=== PATIENT | male | born 1965 | race American Indian/Alaskan Native ===

== ENCOUNTER 2017-08-21 05:05 | Emergency (ER) | payer OTHER ==
--- NOTE | 2017-08-21 09:23 | XRay Report ---
Chest 2 views: History: Cough for 2 months. Findings: Normal cardiomediastinal silhouette. Trachea is midline. No consolidation, pneumothorax or pleural effusion. Impression: No acute cardiopulmonary findings.
--- NOTE | 2017-08-21 09:49 | Emergency Department Report ---
ED General Adult HPI - General Chief complaint: Upper Respiratory Infection Stated complaint: COUGH Time Seen by Provider: 08/21/17 09:38 Source: patient Mode of arrival: Ambulatory Limitations: No Limitations - History of Present Illness Initial comments: PT c/o cough x 2 months. PT states he gets this every year. PT states he has completed 2 courses of antibiotics that were prescribed by his PCP. PT states after the second course, he stopped having nasal congestion/ drainage, sob, and sneezing. PT states he has a hx of allergies and he is taking Flonase and Myesha. PT states he has an albuterol inhaler and states he has not been wheezing. PT states his MD usually gives him a steroid shot when he gets like this, but he did not do that this year. MD Complaint: cough -: Gradual, month(s) (two) Location: chest Severity scale (0 -10): 0 Improves with: medication (2nd round of antibiotics helped some ) Associated Symptoms: denies other symptoms. denies: chest pain, loss of appetite, nausea/vomiting, shortness of breath, weakness Treatments Prior to Arrival: none - Related Data Previous Rx's Medication Instructions Recorded Last Taken Type Famotidine [Pepcid] 20 mg PO BID #40 tablet 07/26/15 Unknown Rx Loratadine [Claritin] 10 mg PO DAILY #30 tablet 07/26/15 Unknown Rx Prednisone [predniSONE 10 mg 10 mg PO .TAPER #1 tab.ds.pk 07/26/15 Unknown Rx (6-Day Pack, 21 Tabs)] hydrOXYzine HCL [Atarax] 25 mg PO Q6HR PRN #30 tablet 07/26/15 Unknown Rx Benzonatate [Tessalon Perles] 100 mg PO Q8HR PRN #12 capsule 08/21/17 Unknown Rx Carbamide Peroxide [Ear Wax 5 drops AU BID PRN #1 bottle 08/21/17 Unknown Rx Removal] Allergies Allergy/AdvReac Type Severity Reaction Status Date / Time Penicillins Allergy Unknown Verified 08/21/17 06:38 ED Review of Systems ROS: Stated complaint: COUGH Other details as noted in HPI Comment: All other systems reviewed and negative Constitutional: denies: fever, malaise ENT: denies: ear pain, throat pain, congestion Respiratory: cough, other (dry cough ). denies: shortness of breath, SOB with exertion, SOB at rest Cardiovascular: denies: chest pain Gastrointestinal: denies: abdominal pain, nausea, vomiting ED Past Medical Hx - Past Medical History Previous Medical History?: Yes Hx Asthma: Yes Additional medical history: SEASONAL ALLERGIES - Social History Smoking Status: Never Smoker - Medications Home Medications: Home Medications Medication Instructions Recorded Confirmed Last Taken Type Famotidine [Pepcid] 20 mg PO BID #40 tablet 07/26/15 Unknown Rx Loratadine [Claritin] 10 mg PO DAILY #30 tablet 07/26/15 Unknown Rx Prednisone [predniSONE 10 mg 10 mg PO .TAPER #1 tab.ds.pk 07/26/15 Unknown Rx (6-Day Pack, 21 Tabs)] hydrOXYzine HCL [Atarax] 25 mg PO Q6HR PRN #30 tablet 07/26/15 Unknown Rx Benzonatate [Tessalon Perles] 100 mg PO Q8HR PRN #12 capsule 08/21/17 Unknown Rx Carbamide Peroxide [Ear Wax 5 drops AU BID PRN #1 bottle 08/21/17 Unknown Rx Removal] ED Physical Exam - General Limitations: No Limitations General appearance: alert, in no apparent distress - Head Head exam: Present: atraumatic, normocephalic, normal inspection - Eye Eye exam: Present: normal appearance, PERRL, EOMI. Absent: conjunctival injection, nystagmus - ENT ENT exam: Present: mucous membranes moist, normal external ear exam, other ( clear post nasal drainage ) - Expanded ENT Exam Expanded TM/Canal exam: Cerumen Impaction: Right TM, Left TM Mouth exam: Absent: drooling, trismus Throat exam: Negative: tonsillar erythema, tonsillomegaly, tonsillar exudate - Neck Neck exam: Present: normal inspection, full ROM. Absent: tenderness, lymphadenopathy - Respiratory Respiratory exam: Present: wheezes. Absent: respiratory distress, rales, rhonchi, stridor - Expanded Respiratory Exam Expanded Location: Wheezes: Left, Upper (faint wheeze heard) - Cardiovascular Cardiovascular Exam: Present: regular rate, normal rhythm. Absent: normal heart sounds - GI/Abdominal GI/Abdominal exam: Present: soft. Absent: tenderness - Extremities Exam Extremities exam: Present: normal inspection, full ROM - Back Exam Back exam: Present: normal inspection, full ROM. Absent: tenderness, CVA tenderness (R), CVA tenderness (L) - Neurological Exam Neurological exam: Present: alert, oriented X3, normal gait - Expanded Neurological Exam Expanded Patient oriented to: Present: person, place, time Speech: Present: fluid speech Best Eye Response (Faisal): (4) open spontaneously Best Motor Response (Braddock): (6) obeys commands Best Verbal Response (Faisal): (5) oriented Braddock Total: 15 - Psychiatric Psychiatric exam: Present: normal affect, normal mood - Skin Skin exam: Present: warm, dry, intact, normal color ED Course Vital Signs 08/21/17 08/21/17 08/21/17 05:09 06:40 10:16 Temperature 98.4 F 98.4 F 98.3 F Pulse Rate 82 82 78 Respiratory 18 18 18 Rate Blood Pressure 98/74 98/74 Blood Pressure 127/88 [Right] O2 Sat by Pulse 95 95 99 Oximetry - Reevaluation(s) Reevaluation #1: 08/21/17 09:51 PT aware of plan of care. PT has no questions at this time. - Pulse Oximetry Interpretation Digit-Finger Initial Pulse Oximetry Readin Actions Taken: none ED Medical Decision Making - Radiology Data Radiology results: report reviewed CXR - NAP - Differential Diagnosis uri, allergic rhinitis, pna, bronchitis Critical Care Time: No Critical care attestation.: If time is entered above; I have spent that time in minutes in the direct care of this critically ill patient, excluding procedure time. ED Disposition Clinical Impression: Post-nasal drainage, Cough Cerumen impaction Qualifiers: Laterality: bilateral Qualified Code(s): H61.23 - Impacted cerumen, bilateral Disposition: TO HOME OR SELFCARE Is pt being admited?: No Does the pt Need Aspirin: No Condition: Stable Instructions: Cerumen Impaction (ED), Allergic Rhinitis (ED), Acute Cough (ED) Additional Instructions: Avoid known allergy triggers continue your allergy medication Follow up with PCP in 3-5 days Return to the ED if worsening or concerns Prescriptions: Benzonatate [Tessalon Perles] 100 mg PO Q8HR PRN #12 capsule PRN Reason: Cough Carbamide Peroxide [Ear Wax Removal] 5 drops AU BID PRN #1 bottle PRN Reason: Ear Wax Referrals: PRIMARY CAREMD [Primary Care Provider] - 3-5 Days MIKE NICOLE MD [Staff Physician] - 3-5 Days [facility] [Outside] - 3-5 Days Time of Disposition: 09:52
[2017-08-21 10:23] VITALS: BP 127/88
== END 2017-08-21 10:24 | disposition home or self-care (01) ==
LOC: ED 05:05
DX: R05 Cough (principal); R09.82 Postnasal drip; H61.23 Impacted cerumen, bilateral; J45.909 Unspecified asthma, uncomplicated; Z88.0 Allergy status to penicillin
CPT/HCPCS: 71020; 96372; 99283; J2930